=== PATIENT | female | born 1985 | race Caucasian/White ===

== ENCOUNTER 2018-02-25 14:35 | Emergency (ER) | payer SELFPAY ==
[~2018-02-25] VITALS: Ht 167.6 cm; Wt 113.6 kg
[2018-02-25] MEDS ORDERED: IBUPROFEN 800 MG TABLET PO ONE (16:15)
[2018-02-25] MEDS ORDERED: PENICILLIN V POTASSIUM 500 MG TABLET PO ONE (16:15)
[2018-02-25 16:30] VITALS: BP 135/74
== END 2018-02-25 16:39 | disposition home or self-care (01) ==
LOC: EMS 14:37
DX: K02.9 Dental caries, unspecified (principal)
CPT/HCPCS: 99283